=== PATIENT | female | born 1990 | race Caucasian/White ===

== ENCOUNTER 2019-06-22 13:36 | Day surgery (SDC) | payer OTHER ==
[2019-06-22 14:06] VITALS: BMI 42.1
[2019-06-22] MEDS ORDERED: hydrALAZINE 20 MG/ML VIAL SLOW IVP PRN ×2 (14:31)
--- NOTE | 2019-06-22 15:00 | PRG ---
DATE OF SERVICE: 06/22/2019 TIME OF SERVICE: 14:30. PRESENTING COMPLAINT: A 36 weeks' gestation, decreased movement, and history of cholestasis of . HISTORY OF PRESENT ILLNESS: Ms. Rosen is a 28-year-old 2, para 1, at 36 weeks' gestation, scheduled for induction of labor at 37 weeks. She is having biweekly NSTs performed by Dr. Hilton due to cholestasis, for which she is on Actigall. She reports that she had a reactive NST yesterday. However, she has had no movement this morning prior to presentation to Labor and Delivery unit. She denies contractions, headache, or blurred vision. She states her itching is under decent control. ELECTRONIC ASSEMBLER HISTORY: As noted. Blood type B negative. Antibody negative. Pap negative. Rubella immune. VDRL nonreactive. Hepatitis B, GC, chlamydia negative. The patient reports her group B strep is positive. MEDICAL HISTORY: Denies. SURGICAL HISTORY: Denies. ALLERGIES: DENIES. MEDICATIONS: 1. Actigall. 2. vitamins. SOCIAL HISTORY: Denies tobacco, alcohol, or IV drug use. FAMILY HISTORY: Noncontributory. REVIEW OF SYSTEMS: Noncontributory. PHYSICAL EXAMINATION: GENERAL: White female. VITAL SIGNS: Temperature 98.3, pulse 80, respirations 18, and blood pressure 126/68. HEENT: Within normal limits. LUNGS: Clear to auscultation bilaterally. HEART: Regular rhythm. ABDOMEN: Soft, nontender. No palpable contractions. Fundal height 36. FHTs 140s. Cervix 2, 50, -2, posterior, cephalic, ballots with ease, bag of water intact. Prolonged monitoring/nonstress test was carried out from the indication of decreased movement and cholestasis of . A reactive category I heart rate tracing with baseline of 130s to 140s with positive accelerations to 160s. No decelerations, category I tracing was noted. No significant contractions were noted. Of note, the patient reported normal movement upon presentation to Labor and Delivery unit, being placed on the monitor. IMPRESSION: Cholestasis of at 36 weeks' gestation with reassuring antepartum testing with nonstress test. PLAN: Discharge home. ER precautions. The patient has scheduled nonstress test in 2 days on the unit and induction in 5 days. Job ID: [id number]
== END 2019-06-22 14:29 | disposition home health service (06) ==
LOC: L&D/OP 13:36
PROVIDERS: ATTEND Obstetrics & Gynecology
DX: O36.8130 Decreased fetal movements, third trimester, not applicable or unspecified (principal); O26.613 Liver and biliary tract disorders in pregnancy, third trimester; K83.1 Obstruction of bile duct; Z3A.36 36 weeks gestation of pregnancy; Z79.899 Other long term (current) drug therapy; Z91.040 Latex allergy status

== ENCOUNTER 2019-06-27 17:59 | Inpatient (IN) | payer OTHER ==
[2019-06-27] MEDS ORDERED: Methylergonovine 0.2 MG/ML VIAL IM PRN (18:39)
[2019-06-27] MEDS ORDERED: Ibuprofen 800 MG TAB PO PRN (18:39)
[2019-06-27] MEDS ORDERED: Diphenoxylate HCl/Atropine Tablet PO PRN ×2 (18:39)
[2019-06-27] MEDS ORDERED: Zolpidem Tartrate 5 MG TAB PO PRN (18:39)
[2019-06-27] MEDS ORDERED: HYDROcodone/Acetaminophen 5/325 mg Tablet PO PRN ×2 (18:39)
[2019-06-27] MEDS ORDERED: NS / Oxytocin 40 units/1000ml 1,000 ML IV PRN (18:39)
[2019-06-27] MEDS ORDERED: hydrALAZINE 20 MG/ML VIAL SLOW IVP PRN (18:39)
[2019-06-27] MEDS ORDERED: Acetaminophen 500 MG TAB PO PRN (18:39)
[2019-06-27] MEDS ORDERED: Lidocaine 1% (PF) 30 ML VIAL SC PRN (18:39)
[2019-06-27] MEDS ORDERED: Carboprost 250 MCG/ML AMP IM PRN (18:39)
[2019-06-27] MEDS ORDERED: Ondansetron PF 4 MG/2 ML Vial IVP PRN (18:39)
[2019-06-27] MEDS ORDERED: Misoprostol 200 MCG TAB PR PRN (18:39)
[2019-06-27] MEDS ORDERED: Promethazine HCl 25 MG/ML VIAL IM PRN (18:39)
[2019-06-27] MEDS ORDERED: NS w/ Oxytocin 10 units 500 ML IV SCH ×2 (18:45)
[2019-06-27] MEDS ORDERED: Penicillin G Potassium 5 MILL.UNITS in Sodium Chloride 0.9% 100 ML IVPB SCH (18:45)
[2019-06-27 18:46] VITALS: BMI 40.8
[2019-06-27] MEDS: Lactated Ringer's 1,000 ML IV SCH (18:46)
--- NOTE | 2019-06-27 18:46 | PDOC.LDHP ---
Labor and Delivery H&P Chief complaint: scheduled induction HPI: 28 y/o at 36 and 5/7 weeks with high risk complicated by cholistasis of , elevated bile salts now on ursodiol 250mg TID, being co-managed by [facility]. Delivery has been recommended in the 36th week of . Due date: 07/20/19 Grav: 2 Para: 1 Current complications: other (Intrahepatic Cholistatsis of ( ICP)) Current medications: pre-aurelio vitamins, other (Ursodiol 250mg TID) Previous surgical history: none Allergies/Adverse Reactions: Allergies Allergy/AdvReac Type Severity Reaction Status Date / Time Latex, Natural Rubber Allergy Mild Rash Verified 06/24/19 10:13 Social history: none - Physical Exam Vital signs reviewed and normal: yes General: NAD Heart: RRR Abdomen: gravid Extremeties: no edema FHT: category 1 - Vaginal Exam cm dilated: 2 Effacement: 0% Station: -3 - Assessment L&D Assessment: medically indicated induction - Plan Plan: admit to L&D, cervical ripening
[2019-06-27 19:04] LABS: Hemoglobin 11.8 g/dL (12.0-16.0); Mean Corpuscular HGB CONC 35.4 g/dL (32.0-36.0); Mean Corpuscular Hemoglobin 29.2 pg (27.0-31.0); Mean Corpuscular Volume 82.5 fL (78.0-98.0); Mean Platelet Volume 8.5 fL (7.4-10.4); Platelet Count 208 thou/uL (130-400); RBC Distribution Width 11.4 % (11.5-14.5); Red Blood Cell (RBC) Count 4.02 mill/uL (4.20-5.40); White Blood Cell (WBC) Count 10.2 thou/uL (4.8-10.8)
[2019-06-27 19:40] LABS: HBSAg Index 0.14 S/CO (0-0.99); Hep B Surf Ag Non-Reactive S/CO (NonReactive); Syphilis Antibody Nonreactive (Nonreactive); Syphilis Antibody Index 0.04 S/CO (<1.00 Non-Reactive)
[2019-06-27] MEDS: Misoprostol 100 MCG TAB VAG SCH (19:56)
[2019-06-28] MEDS: Penicillin G 2.5 MILL.units 2.5 MILL.UNITS in Premix Bag 1 BAG IVPB SCH ×4 (00:07→17:23)
[2019-06-28] MEDS: Butorphanol Tartrate 1 MG/ML VIAL SLOW IVP PRN ×4 (01:23→09:55)
[2019-06-28] MEDS ORDERED: Calcium Carbonate 500 MG ChewTAB PO PRN (01:40)
[2019-06-28] MEDS: Lactated Ringer's 1,000 ML IV SCH ×2 (06:23→17:23)
[2019-06-28] MEDS ORDERED: FLU VACC QS2019-20(6MOS UP)/PF 60 MCG/0.5 ML SYRINGE IM ONE (09:00)
[2019-06-28] MEDS ORDERED: Fentanyl 4 mcg/Bup 0.1% Cadd 100 ML ONE (10:16)
[2019-06-28] MEDS ORDERED: Acetaminophen 325 MG TAB PO PRN (10:56)
[2019-06-28] MEDS ORDERED: Lactated Ringer's 500 ML IV PRN (10:56)
[2019-06-28] MEDS ORDERED: ePHEDrine/0.9% NaCl/PF SYRINGE 50 mg/10 ml SLOW IVP PRN (10:56)
[2019-06-28] MEDS ORDERED: Promethazine HCl 25 MG/ML VIAL IM PRN ×2 (10:56→15:04)
[2019-06-28] MEDS ORDERED: Ondansetron PF 4 MG/2 ML Vial IVP PRN ×2 (10:56→15:04)
[2019-06-28] MEDS ORDERED: Naloxone HCl 0.4 mg/ml Vial IVP PRN ×2 (10:56)
[2019-06-28] MEDS ORDERED: diphenhydrAMINE 50 MG/ML VIAL IVP PRN (10:56)
[2019-06-28] MEDS ORDERED: Fentanyl 4 mcg/Bupivacaine 0.1% Cassette 100 ML EPIDURAL SCH (11:00)
[2019-06-28] MEDS ORDERED: Communication Order-Pharmacy FS PRN (11:00)
[2019-06-28] MEDS ORDERED: Milk Of Magnesia 30 ML UDCUP PO PRN (15:04)
[2019-06-28] MEDS ORDERED: hydrALAZINE 20 MG/ML VIAL SLOW IVP PRN (15:04)
[2019-06-28] MEDS ORDERED: Benzocaine-Menthol 82.5 ML CAN TOP PRN (15:04)
[2019-06-28] MEDS ORDERED: Methylergonovine 0.2 MG/ML VIAL IM PRN (15:04)
[2019-06-28] MEDS ORDERED: Lanolin Ointment 7 GM TUBE TOP PRN (15:04)
[2019-06-28] MEDS ORDERED: Zolpidem Tartrate 5 MG TAB PO PRN (15:04)
[2019-06-28] MEDS ORDERED: NS / Oxytocin 40 units/1000ml 1,000 ML IV SCH (15:04)
[2019-06-28] MEDS ORDERED: diphenhydrAMINE 25 MG CAP PO PRN (15:04)
[2019-06-28] MEDS ORDERED: Misoprostol 200 MCG TAB VAG PRN (15:04)
[2019-06-28] MEDS ORDERED: Preparation H Ointment 28 GM TUBE PR PRN (15:04)
[2019-06-28] MEDS ORDERED: Bisacodyl 10 MG SUPP PR PRN (15:04)
[2019-06-28] MEDS ORDERED: HYDROcodone/Acetaminophen 5/325 mg Tablet PO PRN (15:04)
[2019-06-28] MEDS: Ferrous Sulfate 325 MG TAB PO SCH (17:21)
[2019-06-28] MEDS: Misoprostol 100 MCG TAB VAG SCH ×2 (17:22→17:23)
[2019-06-28] MEDS: Ibuprofen 800 MG TAB PO SCH (18:18)
[2019-06-28] MEDS: HYDROcodone/Acetaminophen 5/325 mg Tablet PO PRN (20:23)
[2019-06-28] MEDS ORDERED: Witch Hazel-Glycerin 1 EACH JAR TOP PRN (20:36)
[2019-06-28] MEDS: Docusate Calcium (SURFAK) 240 MG CAP PO SCH (22:27)
[2019-06-29] MEDS: Ibuprofen 800 MG TAB PO SCH ×3 (01:02→14:37)
[2019-06-29] MEDS: HYDROcodone/Acetaminophen 5/325 mg Tablet PO PRN ×4 (05:04→18:02)
[2019-06-29 06:21] LABS: Hemoglobin 9.9 g/dL (12.0-16.0); Mean Corpuscular HGB CONC 32.3 g/dL (32.0-36.0); Mean Corpuscular Hemoglobin 27.7 pg (27.0-31.0); Mean Corpuscular Volume 85.8 fL (78.0-98.0); Platelet Count 182 thou/uL (130-400); RBC Distribution Width 11.7 % (11.5-14.5); Red Blood Cell (RBC) Count 3.59 mill/uL (4.20-5.40); White Blood Cell (WBC) Count 10.3 thou/uL (4.8-10.8)
[2019-06-29] MEDS: Docusate Calcium (SURFAK) 240 MG CAP PO SCH (08:22)
[2019-06-29] MEDS: Ferrous Sulfate 325 MG TAB PO SCH ×2 (08:22→18:03)
[2019-06-29] MEDS ORDERED: Prenatal Vitamin 1 TAB PO SCH (09:00)
[2019-06-29 12:11] VITALS: BP 127/62; TEMP 97.6
--- NOTE | 2019-06-29 13:31 | PDOC.PP ---
Post Progress Note Post Day #: 1 PO intake tolerated: yes Flatus: yes Ambulation: yes Vital Signs (12 hours) Temp Pulse Resp BP Pulse Ox 06/29/19 12:00 97.6 F 93 20 127/62 06/29/19 08:00 98.6 F 75 20 116/61 99 06/29/19 04:00 97.9 F 79 18 112/58 L 98 Weight Weight 223 lb - Physical Examination General: NAD Cardiovascular: no m/r/g, RRR Respiratory: clear to auscultation bilaterally, non-labored breathing Abdominal: + bowel sounds, lochia, no distention, appropriately TTP Extremities: negative homans (B) Neurological: no gross focal deficits Psychiatric: A&Ox3, normal affect Result Diagrams: 06/29/19 06:01 Additional Labs: Post Labs Blood Type B NEGATIVE 06/27/19 20:25 Hep Bs Antigen Non-Reactive S/CO (NonReactive) 06/27/19 18:51
[2019-06-29] MEDS ORDERED: Measles/Mumps/Rubella 10 MCG/0.5 ML VIAL SC ONE (15:04)
[2019-06-29] MEDS ORDERED: Varicella virus, LIVE 0.5 ML VIAL SC ONE (15:04)
[2019-06-29] MEDS ORDERED: Adacel (T-DAP) 0.5 ML SYRINGE IM ONE (15:04)
--- NOTE | 2019-07-01 11:16 | DN ---
DATE OF PROCEDURE: 06/28/2019 PREOPERATIVE DIAGNOSIS: Intrauterine at 36 weeks and 6 days with intrahepatic cholestasis of and Maternal Medicine consultation with Dr. Hipolito Valdez of [facility] recommending 36 week delivery. POSTOPERATIVE DIAGNOSIS: Intrauterine at 36 weeks and 6 days with intrahepatic cholestasis of and Maternal Medicine consultation with Dr. Hipolito Valdez of [facility] recommending 36 week delivery. PROCEDURE: Spontaneous vaginal delivery over first-degree laceration of the perineum extending slightly into the vaginal vault. FINDINGS: Viable female weighing 2833 g or 6 pounds 4 ounces. Apgars 8 and 9. QUANTITATIVE BLOOD LOSS: 125 mL. COMPLICATIONS: None. PROCEDURE IN DETAIL: The patient presented to [facility] where she was admitted to the labor and delivery service. The patient underwent a normal and uneventful labor with normal cervical dilatation until she was found to be completely dilated. She was then allowed to push and was able to bring the baby down and delivered the baby in a vertex presentation without difficulties. Once the head delivered in occiput anterior position, the shoulders followed spontaneously along with the rest of the baby's body. Once out the baby's mouth and nose were bulb suctioned. The cord was clamped and cut and baby was handed to waiting attendants. Cord blood was collected. Gentle fundal massage was performed and the placenta delivered intact without problems. Hemostasis was assured. Quantitative blood loss was calculated. Inspection of the cervix, vaginal vault, and perineum did not reveal any lacerations needing suturing. Once again, hemostasis was within normal limits and the patient was allowed to recover in the labor and delivery room. Baby went to nursery. Job ID: [id number]
== END 2019-06-29 18:15 | DRG 807 ==
LOC: L&D 17:59 → 3SW 06-28 16:10
PROVIDERS: ADMIT Obstetrics & Gynecology; ATTEND Obstetrics & Gynecology
PROC: 10E0XZZ Delivery of Products of Conception, External Approach (ICD-10-PCS; principal; 2019-06-28)
PROC: 0HQ9XZZ Repair Perineum Skin, External Approach (ICD-10-PCS; 2019-06-28)
PROC: 3E033VJ Introduction of Other Hormone into Peripheral Vein, Percutaneous Approach (ICD-10-PCS; 2019-06-28)
DX: O26.62 Liver and biliary tract disorders in childbirth (principal); Z37.0 Single live birth; Z3A.36 36 weeks gestation of pregnancy; K71.0 Toxic liver disease with cholestasis
CPT/HCPCS: 36415; 51702; 85027; 86780; 86850; 86900; 86901; 87340; 90715; J0595; J2540; J2590; J3490